=== PATIENT | female | born 1995 | race Caucasian/White ===

== ENCOUNTER 2019-04-05 07:24 | Emergency (ER) | payer OTHER ==
[2019-04-05 08:40] LABS: HIV (1/2) Antibody/Antigen Non-Reactive (NonReactive); HIV 1/2 INDEX 0.14 S/CO (<1.00); Hep C IgG Ab Non-Reactive (NonReactive); Hep C Index 0.05 S/CO (0-0.79)
[2019-04-05 09:30] LABS: HBSAB Concentration 14.88 mIU/mL; Hep B Surf AB Reactive (NonReactive)
== END 2019-04-05 08:11 | disposition home or self-care (01) ==
LOC: ERS 07:24
DX: Z77.21 Contact with and (suspected) exposure to potentially hazardous body fluids (principal)
CPT/HCPCS: 36415; 86706; 86803; 87389; 99283